=== PATIENT | female | born 1960 | race Caucasian/White ===

== ENCOUNTER 2017-09-11 18:56 | Inpatient (IN) | payer MEDICARE ==
[~2017-09-11] VITALS: Ht 177.8 cm; Wt 82.9 kg
[2017-09-11] MEDS ORDERED: LEVO50TA5 PO (19:38)
[2017-09-11] MEDS ORDERED: OXYC1TAB9 PO (19:38)
[2017-09-11 19:40] LABS: MEAN CORPUSCULAR HEMOGLOBIN 33.1 pg (27.0-34.8); MEAN CORPUSCULAR HGB CONC 33.7 g/dL (32.4-35.8); MEAN CORPUSCULAR VOLUME 98.4 fL (80-100); MEAN PLATELET VOLUME 9.3 fL (7.4-10.4); PLATELET COUNT 255 x10^3/uL (130-400); RED BLOOD COUNT 5.76 x10^6/uL (3.82-5.3); RED CELL DISTRIBUTION WIDTH 13.1 % (9.6-15.2)
[2017-09-11 19:43] LABS: ALANINE AMINOTRANSFERASE 66 U/L (12-78); ALBUMIN 3.7 g/dL (3.4-5.0); ANION GAP 9 mmol/L (5-15); CALCIUM 9.7 mg/dL (8.5-10.1); CHLORIDE 107 mmol/L (98-107); CREATININE 0.85 mg/dL (0.55-1.02)
[2017-09-11 19:53] LABS: ALKALINE PHOSPHATASE 93 U/L (45-117); BILIRUBIN,TOTAL 0.9 mg/dL (0.2-1.0); FREE T4 (FREE THYROXINE) 1.29 ng/dL (0.76-1.46); TOTAL PROTEIN 7.9 g/dL (6.4-8.2)
[2017-09-11 20:01] LABS: MD YES
[2017-09-11 20:04] LABS: EOS#(MANUAL) 0.64 x10^3/uL (0.0-0.4); EOS% (MANUAL) 4 % (1-7); LYMPH#(MANUAL) 6.44 x10^3/uL (1-3.4); LYMPHS% (MANUAL) 40 % (22-44); MONOS#(MANUAL) 0.48 x10^3/uL (0.3-2.7); MONOS% (MANUAL) 3 % (2-9); REACTIVE LYMPHS # (MANUAL) 0.48 x10^3/uL (0-0); REACTIVE LYMPHS % (MANUAL) 3 % (0-0); SEG#(MANUAL) 8.05 x10^3/uL (1.8-6.8); SEGS% (MANUAL) 50 % (42-75)
[2017-09-11 20:05] LABS: <PLATELET ESTIMATE> ADEQUATE; <PLT MORPHOLOGY> NORMAL PLT MORPH; <RBC MORPHOLOGY> NORMAL
[2017-09-11] MEDS ORDERED: SODIUM CHLORIDE 0.9% 1,000ML IVBOLUS ONE (20:30)
[2017-09-11] MEDS ORDERED: SODIUM CHLORIDE FLUSH 10ML SYR IVF ONE (20:30)
[2017-09-11] MEDS ORDERED: KETOROLAC 30 MG/1 ML IVPush ONE (20:30)
[2017-09-11] MEDS ORDERED: SODIUM CHLORIDE 0.9%, 500ML IVBOLUS ONE (20:30)
[2017-09-11] MEDS ORDERED: KETOROLAC 30 MG/1 ML ONE (20:34)
[2017-09-11] MEDS ORDERED: HYDROmorphone 2 MG/ML, 1ML ONE ×2 (20:35→21:35)
[2017-09-11] MEDS: HYDROmorphone 1 MG/ML, 1ML IVPush PRN ×2 (20:50→21:38)
[2017-09-11 20:51] LABS: HCT (SEDRATE) 56.7 % (34.6-47.8)
[2017-09-11 20:53] LABS: MICROSCOPIC INDICATED
[2017-09-11 20:57] LABS: CULTURE INDICATED? NO
[2017-09-11 21:38] LABS: GLUCOSE, CSF 84 mg/dL (40-80); TOTAL PROTEIN,CSF 34 mg/dL (15-45)
[2017-09-11] MEDS ORDERED: LABETALOL 5MG/ML, 20ML IVPush ONE (22:00)
[2017-09-11] MEDS ORDERED: LABETALOL 5MG/ML, 20ML ONE (22:20)
[2017-09-11] MEDS ORDERED: QUET200T4 PO (22:23)
[2017-09-11] MEDS ORDERED: morphine SULFATE 10 MG/ML, 1ML IVPush PRN (23:00)
[2017-09-11] MEDS: NICOTINE 21 MG/24 HR PATCH.TD24 TD SCH (23:00)
[2017-09-11] MEDS: OXYcodone/APAP 10/325MG TABLET PO SCH (23:00)
[2017-09-11 23:26] VITALS: BP 225/89
[2017-09-11] MEDS ORDERED: AMPICILLIN/SULBACTAM 1,500 MG in SODIUM CHLORIDE 0.9% 50 ML IV SCH (23:30)
[2017-09-11 23:49] VITALS: BP 188/72
[2017-09-12] VITALS (12 sets, daily range): BP systolic 148–219; BP diastolic 69–100
[2017-09-12] MEDS: hydrALAzine 20 MG/ML, 1ML IVPush PRN ×2 (00:01→13:12)
[2017-09-12] MEDS ORDERED: POTASSIUM CHLORIDE 10 MEQ in SODIUM CHLORIDE 0.45% 1,000 ML IV SCH (01:00)
[2017-09-12] MEDS ORDERED: POTASSIUM CHLORIDE 10 MEQ in SODIUM CHLORIDE 0.9% 1,000 ML IV SCH (01:00)
[2017-09-12] MEDS: LABETALOL 5MG/ML, 20ML IVPush PRN ×3 (01:19→20:17)
[2017-09-12] MEDS: AMPICILLIN/SULBACTAM 3 GM in SODIUM CHLORIDE 0.9% 100 ML IV SCH ×4 (01:23→20:17)
[2017-09-12] MEDS: QUETIAPINE 200 MG TABLET PO SCH ×2 (01:24→20:17)
[2017-09-12] MEDS: OXYcodone/APAP 10/325MG TABLET PO SCH (03:00)
[2017-09-12 05:33] LABS: CHLORIDE 112 mmol/L (98-107)
[2017-09-12 05:42] LABS: BASOPHILS # (AUTO) 0.02 x10^3/uL (0-0.1); BASOPHILS % (AUTO) 0 % (0-1); EOSINOPHILS # (AUTO) 0.22 x10^3/uL (0-0.4); EOSINOPHILS % (AUTO) 2 % (1-7); LYMPHOCYTES # (AUTO) 4.09 x10^3/uL (1-3.4); LYMPHOCYTES % (AUTO) 35 % (22-44); MD NO; MEAN CORPUSCULAR HGB CONC 33.9 g/dL (32.4-35.8); MEAN CORPUSCULAR VOLUME 97.5 fL (80-100); MEAN PLATELET VOLUME 9.4 fL (7.4-10.4); MONOCYTES # (AUTO) 0.48 x10^3/uL (0.2-0.8); MONOCYTES % (AUTO) 4 % (2-9); NEUTROPHILS # (AUTO) 6.94 x10^3/uL (1.8-6.8); NEUTROPHILS % (AUTO) 59 % (42-75); PLATELET COUNT 203 x10^3/uL (130-400); RED BLOOD COUNT 5.14 x10^6/uL (3.82-5.3); RED CELL DISTRIBUTION WIDTH 13.1 % (9.6-15.2)
[2017-09-12 05:54] LABS: ANION GAP 8 mmol/L (5-15); CALCIUM 9.1 mg/dL (8.5-10.1); CREATININE 0.76 mg/dL (0.55-1.02)
[2017-09-12 06:23] LABS: HEMOGLOBIN A1C 7.9 % (4.2-6.3)
[2017-09-12] MEDS: LEVOTHYROXINE 50 MCG TABLET PO SCH (06:30)
[2017-09-12] MEDS ORDERED: LISINOPRIL 10 MG TABLET PO SCH (09:00)
[2017-09-12] MEDS: OXYcodone/APAP 10/325MG TABLET PO PRN ×2 (10:10→15:48)
[2017-09-12] MEDS: LISINOPRIL 20 MG TABLET PO SCH (10:10)
[2017-09-12] MEDS: SENNA/DOCUSATE TABLET PO SCH (10:10)
[2017-09-12 11:49] LABS: AMPHETAMINE SCREEN, URINE Negative (Negative); BARBITURATE SCREEN, URINE Negative (Negative); BENZODIAZEPINE SCREEN, URINE Positive (Negative); CANNABINOID SCREEN, URINE Negative (Negative); COCAINE SCREEN, URINE Negative (Negative); METHADONE SCREEN, URINE Negative (Negative); OPIATE SCREEN, URINE Positive (Negative)
[2017-09-12] MEDS: NICOTINE 21 MG/24 HR PATCH.TD24 TD SCH (21:06)
[2017-09-13] MEDS: POTASSIUM CHLORIDE 10 MEQ in SODIUM CHLORIDE 0.9% 1,000 ML IV SCH ×2 (01:12→11:00)
[2017-09-13 02:00] VITALS: BP 173/78
[2017-09-13] MEDS: AMPICILLIN/SULBACTAM 3 GM in SODIUM CHLORIDE 0.9% 100 ML IV SCH ×3 (02:32→14:30)
[2017-09-13] MEDS ORDERED: LORazepam 2 MG/ML, 1ML IVPush ONE ×2 (03:30→12:00)
[2017-09-13] MEDS: LEVOTHYROXINE 50 MCG TABLET PO SCH (05:09)
[2017-09-13 07:38] LABS: ANION GAP 10 mmol/L (5-15); CALCIUM 8.7 mg/dL (8.5-10.1); CHLORIDE 112 mmol/L (98-107); CREATININE 0.71 mg/dL (0.55-1.02)
[2017-09-13 07:48] LABS: MEAN CORPUSCULAR HEMOGLOBIN 32.6 pg (27.0-34.8); MEAN CORPUSCULAR HGB CONC 33.4 g/dL (32.4-35.8); MEAN CORPUSCULAR VOLUME 97.7 fL (80-100); MEAN PLATELET VOLUME 9.3 fL (7.4-10.4); PLATELET COUNT 239 x10^3/uL (130-400); RED BLOOD COUNT 5.34 x10^6/uL (3.82-5.3); RED CELL DISTRIBUTION WIDTH 13.2 % (9.6-15.2)
[2017-09-13 08:20] LABS: BASOPHILS # (AUTO) 0.04 x10^3/uL (0-0.1); BASOPHILS % (AUTO) 0 % (0-1); EOSINOPHILS # (AUTO) 0.26 x10^3/uL (0-0.4); EOSINOPHILS % (AUTO) 2 % (1-7); LYMPHOCYTES # (AUTO) 5.27 x10^3/uL (1-3.4); LYMPHOCYTES % (AUTO) 36 % (22-44); MD SCAN; MONOCYTES # (AUTO) 0.65 x10^3/uL (0.2-0.8); MONOCYTES % (AUTO) 5 % (2-9); NEUTROPHILS # (AUTO) 8.31 x10^3/uL (1.8-6.8); NEUTROPHILS % (AUTO) 57 % (42-75)
[2017-09-13 08:55] VITALS: BP 177/85
[2017-09-13] MEDS: SENNA/DOCUSATE TABLET PO SCH (09:53)
[2017-09-13 10:05] VITALS: BP 182/74
[2017-09-13] MEDS: LISINOPRIL 20 MG TABLET PO SCH (10:11)
[2017-09-13] MEDS ORDERED: OMNIPAQUE 350 MG/ML, 100ML BOTTLE ONE (10:59)
[2017-09-13] MEDS ORDERED: GADOBUTROL 10 MMOL/10 ML VIAL ONE (13:05)
[2017-09-13] MEDS ORDERED: METF500T PO (14:43)
[2017-09-13] MEDS ORDERED: LISI40TA PO (14:43)
[2017-09-13] MEDS ORDERED: HYDR12.58 PO (14:43)
[2017-09-13] MEDS ORDERED: GLYB2.5T2 PO (14:57)
[2017-09-13 15:47] VITALS: BP 194/84
[2017-09-13] MEDS ORDERED: LABETALOL 200 MG TABLET ONE (15:52)
[2017-09-13] MEDS ORDERED: LABETALOL 100 MG TABLET PO ONE (16:00)
[2017-09-13] MEDS ORDERED: AMOX1TAB64 PO (17:25)
== END 2017-09-13 17:39 | disposition home or self-care (01) | DRG 872 ==
LOC: ED 22:02 → EDIP 22:04 → 4WST 23:22
PROVIDERS: ADMIT Family Medicine; ATTEND Family Medicine
PROC: 009U3ZX Drainage of Spinal Canal, Percutaneous Approach, Diagnostic (ICD-10-PCS; principal; 2017-09-11)
DX: A41.9 Sepsis, unspecified organism (principal); D75.1 Secondary polycythemia; K76.0 Fatty (change of) liver, not elsewhere classified; I16.1 Hypertensive emergency; K02.9 Dental caries, unspecified; I10 Essential (primary) hypertension; I16.0 Hypertensive urgency; J44.9 Chronic obstructive pulmonary disease, unspecified; E03.9 Hypothyroidism, unspecified; F32.9 Major depressive disorder, single episode, unspecified; Z66 Do not resuscitate; N95.1 Menopausal and female climacteric states; M79.7 Fibromyalgia; Z79.890 Hormone replacement therapy; E11.9 Type 2 diabetes mellitus without complications; F17.210 Nicotine dependence, cigarettes, uncomplicated; F41.9 Anxiety disorder, unspecified; G44.1 Vascular headache, not elsewhere classified; Z88.2 Allergy status to sulfonamides
CPT/HCPCS: 36415; 62270; 71045; 74160; 74183; 80048; 80053; 80307; 81001; 82384; 82728; 82945; 83036; 83835; 84157; 84439; 84443; 85025; 85651; 86140; 87040; 87070; 87205; 87252; 89051; 93005; 93975; 96361; 96374; 96375; 96376; A9585; J0295; J1170; J1885; J3480; Q9967; J0360; J2060; J2270; J7030

== ENCOUNTER → 2020-11-24 | Outpatient (CLI) | payer MEDICARE ==
[~2020-11-24] MED LIST: AMOX1TAB64 PO; CLON0.1T22 PO; ETOD500T2 PO; FLUT1BLS3 INH; GLYB2.5T2 PO; HYDR-826 PO; HYDROCHLOROTH12.5 MG PO; LEVO50TA5 PO; LISI40TA9 PO; METF500T PO; METH-640 PO; OXYC1TAB18 PO; PRED20TA PO; QUET200T4 PO; QUET300T5 PO; SIMV40TA20 PO
== END | disposition home or self-care (01) ==
LOC: CFH 13:58
PROVIDERS: ATTEND Family Medicine
DX: J43.9 Emphysema, unspecified (principal); J96.10 Chronic respiratory failure, unspecified whether with hypoxia or hypercapnia
CPT/HCPCS: 71250